=== PATIENT | female | born 1995 | race Caucasian/White ===

== ENCOUNTER 2019-05-06 20:15 | Emergency (ER) | payer OTHER ==
--- NOTE | 2019-05-06 20:21 | PDOC ---
Rapid Medical Evaluation Chief Complaint: Redness To Affected Area Time Seen by Provider: 05/06/19 20:19 Medical Evaluation: Allergies Allergy/AdvReac Type Severity Reaction Status Date / Time No Known Allergies Allergy Verified 03/13/13 22:29 05/06/19 20:19 I have performed a brief in-person evaluation of this patient. The patient presents with a chief complaint of: perirectal irritation and rash for 3 days. Denies fever, chills Pertinent physical exam findings: A&O x 3 in NAD I have ordered the following: nothing The patient will proceed to the ED for further evaluation. Discharge Disposition - Diagnosis Perirectal skin irritation - Discharge Dispostion Condition at time of disposition: Stable - Referrals - Patient Instructions - Post Discharge Activity
[2019-05-06 20:23] VITALS: BP 120/71; PULSE 81; TEMP 98.9; BMI 23.9
--- NOTE | 2019-05-06 21:09 | PDOC ---
History of Present Illness - General Chief Complaint: Redness To Affected Area Stated Complaint: RASH Time Seen by Provider: 05/06/19 20:19 History Source: Patient Exam Limitations: No Limitations - History of Present Illness Initial Comments: 05/06/19 21:02 HISTORY OF PRESENT ILLNESS: 24-year-old woman denies medical history presents emergency department for evaluation of perianal irritation. Patient reports she has pain when urine leaks onto her anus and occasionally while moving her bowels. Patient reports intermittent firm stools over the past 2 weeks. She denies any external trauma, rectal bleeding, constipation, diarrhea. No recent travel or sick contacts. PAST MEDICAL HISTORY: Denies past medical history SURGICAL HISTORY: Denies ALLERGIES: No known drug allergies REVIEW OF SYSTEMS General/Constitutional: Denies fever or chills. Denies weakness, weight change. HEENT: Denies change in vision. Denies ear pain or discharge. Denies sore throat. Cardiovascular: Denies chest pain or shortness of breath. Respiratory: Denies cough, wheezing, or hemoptysis. Gastrointestinal: see HPI Genitourinary: Denies dysuria, frequency, or change in urination. Musculoskeletal: Denies joint or muscle swelling or pain. Denies neck or back pain. Skin and breasts: Denies rash or easy bruising. Neurologic: Denies headache, vertigo, loss of consciousness, or loss of sensation. Psychiatric: Denies depression or anxiety. Endocrine: Denies increased thirst. Denies abnormal weight change. Hematologic/Lymphatic: Denies anemia, easy bleeding, or history of blood clots. Allergic/Immunologic: Denies hives or skin allergy. Denies latex allergy. PHYSICAL EXAM General Appearance: Well-appearing, appropriately dressed. No apparent distress , no intoxication. Respiratory/Chest: Lungs CTAB. No shortness of breath, chest tenderness, respiratory distress, accessory muscle use. No crackles, rales, rhonchi, stridor , wheezing, dullness Cardiovascular: RRR. S1, S2. No JVD, murmur, bradycardia, tachycardia. Vascular Pulses: Dorsalis-Pedis (R): 2+, Dorsalis-Pedis (L): 2+ Gastrointestinal/Abdominal: Normal bowel sounds. Abdomen soft, non-distended. No tenderness or rebound tenderness. No organomegaly, pulsatile mass, guarding, hernia, hepatomegaly, splenomegaly. Rectal: Exam performed with YANDY Forman present as liquor grinding mill operator. No growths are present. Anterior anal fissure present. No internal abnormalities present. 05/06/19 21:05 Past History - Past Medical History Allergies/Adverse Reactions: Allergies Allergy/AdvReac Type Severity Reaction Status Date / Time No Known Allergies Allergy Verified 03/13/13 22:29 Home Medications: Ambulatory Orders Oxycodone HCl/Acetaminophen [Percocet 5-325 mg Tablet] 1 combo PO Q6H PRN #1 tablet 03/06/13 Cephalexin Monohydrate [Keflex] 500 mg PO BID #14 capsule 03/14/13 Asthma: No Cancer: No Cardiac Disorders: No COPD: No Diabetes: No HTN: No Seizures: No Thyroid Disease: No - Immunization History Immunization Up to Date: Yes - Suicide/Smoking/Psychosocial Hx Smoking Status: No Smoking History: Never smoked Number of Cigarettes Smoked Daily: 0 Hx Alcohol Use: No Drug/Substance Use Hx: No Hx Substance Use Treatment: No *Physical Exam - Vital Signs Last Vital Signs Temp Pulse Resp BP Pulse Ox 98.9 F 81 18 120/71 100 05/06/19 20:20 05/06/19 20:20 05/06/19 20:20 05/06/19 20:20 05/06/19 20:20 Medical Decision Making - Medical Decision Making 05/06/19 21:09 A/P: 24-year-old woman with anterior anal fissure I will discharge patient home with supportive treatment of fissure. Patient has been instructed to follow-up with her primary doctor in 2 days for reevaluation. *DC/Admit/Observation/Transfer Diagnosis at time of Disposition: Acute anterior anal fissure - Discharge Dispostion Disposition: HOME Condition at time of disposition: Stable Decision to Admit order: No - Referrals Referrals: Stevo Gardner MD [Primary Care Provider] - - Patient Instructions Additional Instructions: Sitz baths Apply a thin layer of hydrocortisone with lidocaine ointment to affected area to help decrease swelling and persistent pain. Drink plenty of fluids. Drink one glass of prune juice every day. Eat lots of leafy green vegetables, berries, fruits and whole grains. Return to emergency department for severe rectal bleeding, increased pain, or any other concerns. - Post Discharge Activity
== END 2019-05-06 21:22 | disposition home or self-care (01) ==
LOC: JERFT 20:15
DX: K60.2 Anal fissure, unspecified (principal)
CPT/HCPCS: 99281-25

== ENCOUNTER 2019-05-19 16:20 | Emergency (ER) | payer OTHER ==
[2019-05-19 16:25] VITALS: BP 122/83; PULSE 99; TEMP 98.6; BMI 23.0
--- NOTE | 2019-05-19 16:25 | PDOC ---
Rapid Medical Evaluation Time Seen by Provider: 05/19/19 16:22 Medical Evaluation: Allergies Allergy/AdvReac Type Severity Reaction Status Date / Time No Known Allergies Allergy Verified 05/06/19 21:21 05/19/19 16:22 I have performed a brief in-person evaluation of this patient. The patient presents with a chief complaint of: Pt had a genital rash 3 weeks ago, which went away, now her partner has similar rash, she wants to get checked for herpes. I have ordered the following: UCG, GC/CT The patient will proceed to the ED for further evaluation. 05/19/19 16:23
--- NOTE | 2019-05-19 17:19 | PDOC ---
History of Present Illness - General Chief Complaint: Vaginal Sxs Stated Complaint: ANAL FISSURE Time Seen by Provider: 05/19/19 16:22 History Source: Patient - History of Present Illness Timing/Duration: reports: constant Past History - Past Medical History Allergies/Adverse Reactions: Allergies Allergy/AdvReac Type Severity Reaction Status Date / Time No Known Allergies Allergy Verified 05/19/19 16:25 Home Medications: Ambulatory Orders Oxycodone HCl/Acetaminophen [Percocet 5-325 mg Tablet] 1 combo PO Q6H PRN #1 tablet 03/06/13 Cephalexin Monohydrate [Keflex] 500 mg PO BID #14 capsule 03/14/13 Valacyclovir HCl [Valtrex] 1,000 mg PO BID #14 tablet 05/19/19 Asthma: No Cancer: No Cardiac Disorders: No COPD: No Diabetes: No HTN: No Seizures: No Thyroid Disease: No - Immunization History Immunization Up to Date: Yes - Suicide/Smoking/Psychosocial Hx Smoking Status: No Smoking History: Never smoked Number of Cigarettes Smoked Daily: 0 Hx Alcohol Use: No Drug/Substance Use Hx: No Hx Substance Use Treatment: No Review of Systems - Review of Systems Constitutional: No: Chills, Fever ABD/GI: No: Nausea, Vomiting, Abdominal cramping : No: Dysuria, Discharge, Flank Pain, Hematuria *Physical Exam - Vital Signs Last Vital Signs Temp Pulse Resp BP Pulse Ox 98.6 F 99 H 16 122/83 97 05/19/19 16:22 05/19/19 16:22 05/19/19 16:22 05/19/19 16:22 05/19/19 16:22 - Physical Exam Comments: 05/19/19 18:21 pt taty anxious, teary during eval General Appearance: Yes: Appropriately Dressed, Apparent Distress HEENT: positive: Normal Voice Neck: positive: Supple Respiratory/Chest: negative: Respiratory Distress Female Pelvic Exam: positive: other (multiple tender ulcers to perineal area, C/ F herpes simplex) Integumentary: positive: Dry, Warm Neurologic: positive: Fully Oriented, Alert, Normal Mood/Affect Medical Decision Making - Medical Decision Making 05/19/19 17:18 24-year-old female, denies any past medical history, here with painful lesions to genitalia for over 2 weeks. Patient initially presented to the emergency department over 1 week ago when, at the time, was complaining of perineal irritation and pain, especially when urine leaks onto site and occasionally when moving her bowels. Patient was diagnosed with anal fissure and prescribed pain control. States sxs persist. Patient states the reason she returns today is because her boyfriend is now c/o painful penile sores for the past 2 days. Patient does admit to anal sex prior to onset of her symptoms see exam Concern for anogenital herpes simplex Will send serology and cxs at this time Upreg neg UA w/ 2+ le and >40 marcelle, no dysuria at this time, will hold off on abx and send ucx -dc w/ valtrex -[facility] f/u *DC/Admit/Observation/Transfer Diagnosis at time of Disposition: Genital lesion, female - Discharge Dispostion Disposition: HOME Condition at time of disposition: Good - Prescriptions Prescriptions: Valacyclovir HCl [Valtrex] 1,000 mg PO BID #14 tablet - Referrals Referrals: Stevo Gardner MD [Primary Care Provider] - - Patient Instructions Additional Instructions: Based on your exam, the concern is for possible anogenital herpes versus a tear. We have sent herpes blood test, which may return tomorrow. We also send off testing for chlamydia, gonorrhea, which will take 3-5 days to come back. Please call [phone], starting tomorrow for test results. Take Valtrex as prescribed Your partner should be tested as well Please refrain from sexual activity and follow up with your [facility] - Post Discharge Activity
[2019-05-19 17:54] LABS: EPI CELLS 9.5 /HPF (0-5/HPF); HYALINE CASTS 29 /lpf (0-8); PH,URINE 6.5 (5.0-8.0); URINE APPEARANCE CLOUDY; URINE BACTERIA 442.7 /hpf (NEGATIVE); URINE BILIRUBIN NEGATIVE (NEGATIVE); URINE COLOR YELLOW; URINE GLUCOSE (UA) NEGATIVE (NEGATIVE); URINE KETONE TRACE (NEGATIVE); URINE LEUK ESTERASE 2+ (NEGATIVE); URINE NITRITE NEGATIVE (NEGATIVE); URINE PROTEIN TRACE (NEGATIVE); URINE RBC 16 /hpf (0-4); URINE WBC 52 /hpf (0-5)
== END 2019-05-19 18:00 | disposition home or self-care (01) ==
LOC: JERFT 16:20
DX: L98.8 Other specified disorders of the skin and subcutaneous tissue (principal)
CPT/HCPCS: 36415; 81003; 84703; 86695; 86696; 87491; 87529; 87591; 99282-25

== ENCOUNTER 2020-08-20 10:25 | Inpatient (IN) | payer OTHER ==
[2020-08-20] MEDS ORDERED: CITRIC ACID/SODIUM CITRATE 30 ML UNIT-DOSE CUP PO ONE (11:22)
[2020-08-20] MEDS ORDERED: ELECTROLYTE-148 SOLN 500 ML IV ONE (11:22)
[2020-08-20] MEDS ORDERED: ELECTROLYTE-148 SOLN 1,000 ML IV SCH (11:30)
[2020-08-20 11:58] VITALS: BMI 33.1
[2020-08-20 11:59] LABS: BASO % 0.3 % (0-2.0); EOS % 0.4 % (0-4.5); HEMATOCRIT 34.8 % (32.4-45.2); HEMOGLOBIN 11.6 GM/dL (10.7-15.3); LYMPH % 18.1 % (8-40); MCH 28.5 pg (25.7-33.7); MCHC 33.3 g/dl (32.0-36.0); MEAN CELL VOLUME 85.6 fl (80-96); MEAN PLT VOLUME 9.9 fl (7.5-11.1); NEUT % 74.2 % (42.8-82.8); PLATELET COUNT 217 K/MM3 (134-434); RBC 4.07 M/mm3 (3.60-5.2); RDW 14.9 % (11.6-15.6); WHITE BLOOD COUNT 8.6 K/mm3 (4.0-10.0)
[2020-08-20] MEDS ORDERED: OXYTOCIN 20 UNITS in 0.9% NS 20 UNIT/1,000 ML INFUS.BAG IV ONE ×2 (12:01→15:56)
[2020-08-20 12:05] LABS: INR 0.97 (0.83-1.09); PROTHROMBIN TIME (PATIENT) 11.9 SEC (9.7-13.0)
[2020-08-20 12:07] LABS: ACTIVATED PTT 27.3 SECONDS (25.2-36.5)
[2020-08-20] MEDS ORDERED: SUCCINYLCHOLINE CHLORIDE 200 MG/10 ML SYRINGE ONE (12:15)
[2020-08-20] MEDS ORDERED: morphine SULFATE/PF 0.5 MG/ML (2cc Syringe - QUVA) ONE (12:15)
[2020-08-20] MEDS ORDERED: PROPOFOL 20 ML ONE (12:15)
[2020-08-20] MEDS ORDERED: PHENYLEPHRINE HCL 10 MG/1 ML SINGLE DOSE VIAL ONE (12:19)
[2020-08-20 12:39] LABS: POTASSIUM 4.1 mmol/L (3.5-5.1)
[2020-08-20 12:43] LABS: CALCIUM 8.7 mg/dL (8.5-10.1)
[2020-08-20 12:44] LABS: BLOOD UREA NITROGEN 6.8 mg/dL (7-18)
[2020-08-20 12:47] LABS: CREATININE 0.5 mg/dL (0.55-1.3)
[2020-08-20] MEDS ORDERED: ePHEDrine SULFATE 50 MG/1 ML AMPULE ONE (12:50)
[2020-08-20] MEDS ORDERED: ONDANSETRON 4 MG/2 ML VIAL IVPUSH PRN (13:09)
[2020-08-20] MEDS ORDERED: oxyCODONE HCL 5 MG TABLET PO PRN ×2 (14:23)
[2020-08-20] MEDS ORDERED: IBUPROFEN 800 MG/8 ML IJ IVPB PRN (14:23)
[2020-08-20] MEDS ORDERED: METHYLERGONOVINE MALEATE 0.2 MG/1 ML AMP IM PRN (14:23)
[2020-08-20] MEDS ORDERED: OXYTOCIN 20 UNITS in 0.9% NS 20 UNIT/1,000 ML INFUS.BAG IV SCH (14:30)
[2020-08-21] MEDS: SIMETHICONE 80 MG TAB.CHEW (FP) PO PRN ×2 (06:26→16:21)
[2020-08-21] MEDS: IBUPROFEN 600 MG TABLET (FP) PO PRN ×2 (06:26→16:20)
[2020-08-21] MEDS: ACETAMINOPHEN 325 MG TABLET (FP) PO PRN ×2 (06:26→16:21)
[2020-08-21 08:11] LABS: BASO % 0.2 % (0-2.0); EOS % 0.4 % (0-4.5); HEMATOCRIT 32.8 % (32.4-45.2); HEMOGLOBIN 10.6 GM/dL (10.7-15.3); LYMPH % 11.8 % (8-40); MCH 27.7 pg (25.7-33.7); MCHC 32.2 g/dl (32.0-36.0); MEAN CELL VOLUME 86.1 fl (80-96); MEAN PLT VOLUME 9.2 fl (7.5-11.1); MONO % 5.3 % (3.8-10.2); NEUT % 82.3 % (42.8-82.8); PLATELET COUNT 207 K/MM3 (134-434); RBC 3.81 M/mm3 (3.60-5.2); RDW 15.1 % (11.6-15.6); WHITE BLOOD COUNT 11.3 K/mm3 (4.0-10.0)
[2020-08-21] MEDS ORDERED: BISACODYL 10 MG SUPP.RECT RC PRN (14:23)
[2020-08-22] MEDS: ACETAMINOPHEN 325 MG TABLET (FP) PO PRN ×2 (00:12→07:53)
[2020-08-22] MEDS: SIMETHICONE 80 MG TAB.CHEW (FP) PO PRN ×2 (00:12→07:52)
[2020-08-22] MEDS: IBUPROFEN 600 MG TABLET (FP) PO PRN ×2 (00:13→07:52)
[2020-08-22 13:06] VITALS: BP 128/82; PULSE 83; TEMP 98.2
== END 2020-08-22 15:45 | disposition home or self-care (01) | DRG 788 ==
LOC: JDEL 10:25 → JLDR 11:04 → J3W 16:18
PROVIDERS: ADMIT Obstetrics & Gynecology; ATTEND Obstetrics & Gynecology
PROC: 10D00Z1 Extraction of Products of Conception, Low, Open Approach (ICD-10-PCS; principal; 2020-08-20)
DX: O34.219 Maternal care for unspecified type scar from previous cesarean delivery (principal); O99.824 Streptococcus B carrier state complicating childbirth; Z3A.39 39 weeks gestation of pregnancy; Z37.0 Single live birth
CPT/HCPCS: 36415; 59025; 80048; 85025; 85610; 85730; 86780; 86850; 86900; 86901; 87081; 88307-TC; C9803; U0003

== ENCOUNTER 2021-10-02 17:53 | Emergency (ER) | payer OTHER ==
[2021-10-02 18:12] VITALS: BP 106/69; PULSE 96; TEMP 98.2; BMI 25.7
== END 2021-10-02 19:17 | disposition home or self-care (01) ==
LOC: JERFT 17:53
PROC: 0HQ1XZZ Repair Face Skin, External Approach (ICD-10-PCS; principal; 2021-10-02)
DX: S09.90XA Unspecified injury of head, initial encounter (principal); S01.81XA Laceration without foreign body of other part of head, initial encounter; W00.0XXA Fall on same level due to ice and snow, initial encounter
CPT/HCPCS: 99282-25

== ENCOUNTER 2021-10-07 14:09 | Emergency (ER) | payer OTHER ==
[2021-10-07 14:14] VITALS: BP 104/73; PULSE 96; TEMP 98.1; BMI 26.5
== END 2021-10-07 15:25 | disposition home or self-care (01) ==
LOC: JER 14:09 → JERFT 14:09
DX: Z48.02 Encounter for removal of sutures (principal)
CPT/HCPCS: 99281-25

== ENCOUNTER 2022-08-05 09:52 | Emergency (ER) | payer OTHER | END 2022-08-05 10:05 | disposition home or self-care (01) | LOC: JVIRT 09:52 | DX: J06.9 Acute upper respiratory infection, unspecified (principal) | CPT/HCPCS: 0241U-QW; Q3014-GT ==

== ENCOUNTER 2022-11-29 12:03 | Emergency (ER) | payer OTHER ==
[2022-11-29 12:15] VITALS: BP 117/75; PULSE 76; RESP 16; TEMP 98.7; BMI 26.5
[2022-11-29] MEDS ORDERED: IBUPROFEN 600 MG TABLET (FP) PO ONE ×2 (12:55→12:56)
== END 2022-11-29 13:08 | disposition home or self-care (01) ==
LOC: JERFT 12:03
DX: H92.02 Otalgia, left ear (principal)
CPT/HCPCS: 99283-25

== ENCOUNTER 2023-07-02 05:06 | Day surgery (SDC) | payer OTHER ==
[2023-07-01 13:55] VITALS: BMI 28.3
[2023-07-02] MEDS ORDERED: oxyCODONE HCL 5 MG TABLET PO PRN (12:52)
[2023-07-02] MEDS ORDERED: IBUPROFEN 600 MG TABLET (FP) PO PRN (12:52)
[2023-07-02] MEDS ORDERED: IBUPROFEN 800 MG/8 ML IJ IVPB PRN (12:52)
[2023-07-02] MEDS ORDERED: ONDANSETRON 4 MG/2 ML VIAL IVPUSH PRN (12:52)
[2023-07-02] MEDS ORDERED: ELECTROLYTE-148 SOLN 1,000 ML IV SCH (13:00)
[2023-07-02] MEDS ORDERED: FENTANYL CITRATE/PF 50 MCG/ML VIAL ONE ×2 (13:04→13:51)
[2023-07-02] MEDS ORDERED: MIDAZOLAM HCL 2 MG/2 ML SINGLE DOSE VIAL ONE (13:05)
[2023-07-02] MEDS ORDERED: PROPOFOL 20 ML ONE (13:05)
[2023-07-02] MEDS ORDERED: ONDANSETRON 4 MG/2 ML VIAL ONE (13:19)
[2023-07-02] MEDS ORDERED: DEXAMETHASONE SOD PHOSPHATE 4 MG/1 ML VIAL ONE (13:19)
[2023-07-02] MEDS ORDERED: ACETAMINOPHEN INJECTION 100 ML IVPB ONE (13:51)
[2023-07-02] MEDS ORDERED: KETOROLAC TROMETHAMINE 30 MG/1 ML VIAL ONE (13:51)
[2023-07-02] MEDS ORDERED: DOXYCYCLINE INJECTION 100 MG in DEXTROSE 5%-WATER - 100 ML IVPB ONE (14:00)
[2023-07-02] MEDS ORDERED: ACETAMINOPHEN 1000 MG/100 ML BAG IVPB ONE ×2 (14:20→15:35)
[2023-07-02 14:36] VITALS: RESP 16
[2023-07-02 15:27] VITALS: PULSE 80; TEMP 97.2
[2023-07-02] MEDS ORDERED: KETOROLAC TROMETHAMINE 30 MG/1 ML VIAL IVPUSH ONE (15:34)
[2023-07-02 15:51] LABS: BASO % 0.2 % (0-2.0); EOS % 0.1 % (0-4.5); HEMATOCRIT 25.8 % (32.4-45.2); HEMOGLOBIN 8.6 GM/dL (10.7-15.3); LYMPH % 7.9 % (8-40); MCH 27.6 pg (25.7-33.7); MCHC 33.2 g/dl (32.0-36.0); MEAN CELL VOLUME 83.2 fl (80-96); MONO % 1.9 % (3.8-10.2); NEUT % 89.9 % (42.8-82.8); PLATELET COUNT 418 10^3/uL (134-434); RDW 13.9 % (11.6-15.6); WHITE BLOOD COUNT 10.4 K/mm3 (4.0-10.0)
[2023-07-02 17:08] VITALS: BP 112/68
== END 2023-07-02 17:15 | disposition home or self-care (01) ==
LOC: JASU-SURG 05:06
PROVIDERS: ATTEND Obstetrics & Gynecology
PROC: 10D17ZZ Extraction of Products of Conception, Retained, Via Natural or Artificial Opening (ICD-10-PCS; principal; 2023-07-02 13:00)
DX: O07.3 Failed attempted termination of pregnancy with other and unspecified complications (principal); O73.1 Retained portions of placenta and membranes, without hemorrhage
CPT/HCPCS: 36415; 76998-TC; 85025; 88305-TC; 94760

== ENCOUNTER 2023-08-03 07:56 | Emergency (ER) | payer OTHER ==
[2023-08-03 08:09] VITALS: RESP 18; BMI 29.0
[2023-08-03] MEDS ORDERED: KETOROLAC TROMETHAMINE 30 MG/1 ML VIAL IM ONE (08:34)
[2023-08-03] MEDS ORDERED: ACETAMINOPHEN 500 MG TABLET (FP) PO ONE (08:34)
[2023-08-03] MEDS ORDERED: ACETAMINOPHEN 500 MG TABLET (FP) ONE (08:53)
[2023-08-03] MEDS ORDERED: KETOROLAC TROMETHAMINE 30 MG/1 ML VIAL ONE (08:53)
[2023-08-03 10:14] VITALS: BP 110/70; PULSE 68; TEMP 98.7
== END 2023-08-03 10:33 | disposition home or self-care (01) ==
LOC: JER 07:56 → JERFT 07:56
PROC: 3E0233Z Introduction of Anti-inflammatory into Muscle, Percutaneous Approach (ICD-10-PCS; principal; 2023-08-03)
DX: J02.9 Acute pharyngitis, unspecified (principal); R51.9 Headache, unspecified; M79.10 Myalgia, unspecified site; R53.81 Other malaise; J06.9 Acute upper respiratory infection, unspecified; Z20.822 Contact with and (suspected) exposure to COVID-19
CPT/HCPCS: 0241U-QW; 84703; 99284-25

== ENCOUNTER 2023-08-13 04:50 | Day surgery (SDC) | payer OTHER ==
[2023-08-06 13:23] VITALS: BMI 29.0
[~2023-08-13 04:50] MED LIST: FERRIC SUBSULFATE 500 ML BOTTLE TP ONE; IODINE/POTASSIUM IODIDE 5%/10% 14 ML BOTTLE NR ONE; ceFAZolin SODIUM 1 GM VIAL IVPB ONE
[2023-08-13] MEDS ORDERED: ACETAMINOPHEN INJECTION 100 ML IVPB ONE (08:28)
[2023-08-13] MEDS ORDERED: ONDANSETRON 4 MG/2 ML VIAL IVPUSH PRN ×2 (09:55→10:06)
[2023-08-13] MEDS ORDERED: LACTATED RINGERS SOLUTION 1,000 ML IV SCH (10:00)
[2023-08-13] MEDS ORDERED: IBUPROFEN 800 MG/8 ML IJ IVPB PRN (10:06)
[2023-08-13] MEDS ORDERED: IBUPROFEN 600 MG TABLET (FP) PO PRN (10:06)
[2023-08-13] MEDS ORDERED: oxyCODONE HCL 5 MG TABLET PO PRN (10:06)
[2023-08-13] MEDS ORDERED: ELECTROLYTE-148 SOLN 1,000 ML IV SCH (10:15)
[2023-08-13] MEDS ORDERED: IODINE/POTASSIUM IODIDE 5%/10% 14 ML BOTTLE NR ONE (10:26)
[2023-08-13] MEDS ORDERED: FERRIC SUBSULFATE 500 ML BOTTLE TP ONE (10:26)
[2023-08-13 12:04] VITALS: RESP 18
[2023-08-13 13:40] VITALS: BP 110/65; PULSE 86; TEMP 97.5
== END 2023-08-13 13:10 | disposition home or self-care (01) ==
LOC: JASU-SURG 04:50
PROVIDERS: ATTEND Obstetrics & Gynecology
PROC: 0UBC7ZZ Excision of Cervix, Via Natural or Artificial Opening (ICD-10-PCS; 2023-08-13)
PROC: 0UBC7ZX Excision of Cervix, Via Natural or Artificial Opening, Diagnostic (ICD-10-PCS; principal; 2023-08-13 10:15)
DX: R87.613 High grade squamous intraepithelial lesion on cytologic smear of cervix (HGSIL) (principal); R87.612 Low grade squamous intraepithelial lesion on cytologic smear of cervix (LGSIL)
CPT/HCPCS: 81025; 94760